=== PATIENT | female | born 1975 | race Two or more races ===

== ENCOUNTER 2017-12-30 17:31 | Emergency (ER) | payer MEDICAID ==
[~2017-12-30] VITALS: Ht 157.5 cm; Wt 93.4 kg
[2017-12-30 18:02] VITALS: BP 135/77
[2017-12-30] MEDS ORDERED: ACETAMINOP160 MG/54 ORAL (18:42)
[2017-12-30] MEDS ORDERED: LATUDA40 MG PO (18:42)
[2017-12-30] MEDS ORDERED: IRON325 M1 PO (18:42)
[2017-12-30] MEDS ORDERED: BUSPIRONE HCL10 M1 ORAL (18:42)
[2017-12-30] MEDS ORDERED: MILK OF MA400 MG/51 ORAL (18:42)
[2017-12-30] MEDS ORDERED: CALCIUM500 M3 PO (18:42)
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
[2017-12-30 20:22] LABS: BASOPHILS % (AUTO) 1.4 % (0.0-2.0); HEMATOCRIT 35.2 % (37.0-47.0); HEMOGLOBIN 11.1 G/DL (12.0-16.0); LYMPHOCYTES % (AUTO) 53.8 % (20.0-45.0); MEAN CORPUSCULAR VOLUME 84 FL (80-99); MONOCYTES % (AUTO) 7.5 % (1.0-10.0); NEUTROPHILS % (AUTO) 32.3 % (45.0-75.0); PLATELET COUNT 431 K/UL (150-450); RED CELL DISTRIBUTION WIDTH 16.7 % (11.6-14.8)
[2017-12-30 20:26] LABS: APPEARANCE,URINE CLEAR; BILIRUBIN, URINE NEGATIVE (NEGATIVE); COLOR,URINE PALE YELLOW; GLUCOSE, URINE (UA) NEGATIVE (NEGATIVE); KETONES,URINE NEGATIVE (NEGATIVE); LEUKOCYTE ESTERASE ,URINE NEGATIVE (NEGATIVE); NITRITE,URINE NEGATIVE (NEGATIVE); PH,URINE 7 (4.5-8.0); PROTEIN,URINE NEGATIVE (NEGATIVE); UROBILINOGEN,URINE NORMAL MG/DL (0.0-1.0)
[2017-12-30 20:31] LABS: ANION GAP 7 mmol/L (5-15); BLOOD UREA NITROGEN 9 mg/dL (7-18); CALCIUM 9.7 MG/DL (8.5-10.1); CARBON DIOXIDE 29 MMOL/L (21-32); CHLORIDE 103 MMOL/L (98-107); CREATININE 0.6 MG/DL (0.55-1.30); POTASSIUM 3.9 MMOL/L (3.5-5.1); SODIUM 139 MMOL/L (136-145)
[2017-12-30 20:36] LABS: ALANINE AMINOTRANSFERASE 27 U/L (12-78); ALBUMIN 3.4 G/DL (3.4-5.0); ALBUMIN/GLOBULIN RATIO 0.7 (1.0-2.7); ALKALINE PHOSPHATASE 120 U/L (46-116); ASPARTATE AMINO TRANSFERASE 33 U/L (15-37); BILIRUBIN,TOTAL 0.2 MG/DL (0.2-1.0)
[2017-12-30] MEDS ORDERED: ALPRAZolam 0.5mg tab ORAL ONE (22:15)
[2017-12-31] VITALS: BP 118/73
[2017-12-31 00:09] VITALS: BP 118/73
--- NOTE | 2017-12-31 10:17 | Diagnostic Imaging Report ---
Indication: Back pain Technique: Continuous helical transaxial imaging of the lumbar spine was obtained from the lung bases to the pubic symphysis. No IV contrast was administered. Coronal 2-D reformats were also obtained. Study obtained in a Siemens sensation [address] Total Dose length Product (DLP): 1154.[address] Dose Index Volume (CTDIvol): 39.02 mGy Comparison: None Findings: There is no evidence of an acute fracture or malalignment. Height and configuration of the vertebral bodies and intervertebral discs are within normal limits. Filly exception is L3-4 which shows a narrowed disc and vacuum phenomena. Mild endplate spurs also noted at this level. The facets are unremarkable. There is no soft tissue swelling. Impression: Negative for acute injury. Mild degenerative disc disease at L3-4. [facility] has communicated the preliminary results to the Emergency Department. Their findings are largely concordant with this report. The CT scanner at [facility] is accredited by the [employer] and the scans are performed using dose optimization techniques as appropriate to a performed exam including Automatic Exposure control.
--- NOTE | 2017-12-31 10:19 | Diagnostic Imaging Report ---
Indication: Neck pain. Technique: Continuous helical imaging of the cervical spine was obtained transaxially from the skull base to the upper thoracic spine. 2-D coronal and sagittal reformatted images were obtained. Automatic Exposure Control was utilized. Total Dose length Product (DLP): 2195.[address] Dose Index Volume (CTDIvol): 70.38,28.19,16.47 mGy Comparison: None Findings: There is no evidence of an acute fracture or malalignment. Atlantoaxial alignment appears normal. Height and configuration of the vertebral bodies and intervertebral discs are within normal limits. Uncovertebral joints and facets are unremarkable. There is no soft tissue swelling. Impression: Negative cervical spine CT. [facility] has communicated the preliminary results to the Emergency Department. Their findings are largely concordant with this report. The CT scanner at [facility] is accredited by the [employer] and the scans are performed using dose optimization techniques as appropriate to a performed exam including Automatic Exposure control.
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
--- NOTE | 2017-12-31 10:58 | Diagnostic Imaging Report ---
Indication: Altered mental status Technique: Contiguous 5 mm thick transaxial imaging of the head obtained in a Siemens Sensation [address] scanner. Soft tissue and bone windows generated. Automatic Exposure Control was utilized. Total Dose length Product (DLP): 2195.[address] Dose Index Volume (CTDIvol): 70.38,28.19,16.47 mGy Comparison: none Findings: The size and configuration of the cortical sulci, basal cisterns, and ventricles are within normal limits for age. There is no mass effect, midline shift, or edema identified. There is no evidence of acute hemorrhage or abnormal intra-axial or extra-axial fluid collections. The bones and soft tissues are unremarkable. Impression: No mass effect, edema or acute bleed. [facility] has communicated the preliminary results to the Emergency Department. Their findings are largely concordant with this report. The CT scanner at [facility] is accredited by the [employer] and the scans are performed using dose optimization techniques as appropriate to a performed exam including Automatic Exposure control.
== END 2017-12-31 00:09 ==
LOC: EDBD 17:31 → EMR 18:05
DX: S00.93XA Contusion of unspecified part of head, initial encounter (principal); S16.1XXA Strain of muscle, fascia and tendon at neck level, initial encounter; Y04.2XXA Assault by strike against or bumped into by another person, initial encounter; Y92.199 Unspecified place in other specified residential institution as the place of occurrence of the external cause; Z88.5 Allergy status to narcotic agent
CPT/HCPCS: 36415; 70450; 70486; 72125; 72131; 80053; 81001; 81025; 85025; 99284